=== PATIENT | female | born 1995 | race Hispanic/Latino ===

== ENCOUNTER 2025-02-25 22:29 | Emergency (ER) | payer SELFPAY ==
[~2025-02-25] VITALS: Ht 157.5 cm; Wt 83.5 kg
[2025-02-25 23:04] LABS: IMMATURE GRANULOCYTE ABSOLUTE 0.03 K/uL (0-1); NUCLEATED RED BLOOD CELLS 0.0 % (0.0-0.19); PLATELET COUNT (AUTO) 379 K/uL (130-400); RED BLOOD CELL COUNT(AUTO) 5.11 MIL/uL (4.00-5.50); RED CELL DISTRIBUTION WIDTH 13.5 % (11.0-15.5); WHITE BLOOD COUNT (AUTO) 11.7 K/uL (4.8-10.8)
[2025-02-25 23:14] LABS: CREATININE 0.5 mg/dL (0.5-1.0); GLOMERULAR FILTR. RATE CALC 129.0 mL/min (>90); GLUCOSE,RANDOM 91.0 mg/dL (70-105); SODIUM SERUM 141.0 mmol/L (136-145); UREA NITROGEN, BLOOD 14.0 mg/dL (7-18)
[2025-02-25 23:17] LABS: APPEARANCE,URINE CLEAR (CLEAR); GLUCOSE, URINE (UA) NEGATIVE (NEGATIVE); LEUKOCYTE ESTERASE ,URINE NEGATIVE Leu/uL (NEGATIVE); NITRATE,URINE NEGATIVE (NEGATIVE); OCCULT BLOOD,URINE MODERATE (NEGATIVE)
[2025-02-25 23:19] LABS: CREATINE KINASE, TOTAL 97.0 U/L (21-232)
[2025-02-25 23:25] LABS: ADD UA MICROSCOPIC YES
[2025-02-25 23:26] LABS: SQUAMOUS EPITHELIAL CELL,UR RARE /HPF (0-2)
--- NOTE | 2025-02-25 23:40 | HMCIMG ---
EXAM: CR Chest, 1 view. CLINICAL HISTORY: Chest pain. COMPARISON: None provided. FINDINGS: The lungs show no infiltrate or other acute finding. No pleural effusion or pneumothorax. The cardiomediastinal silhouette is within normal limits. No acute osseous abnormality. IMPRESSION: 1. No acute cardiopulmonary pathology is evident. /[place]
--- NOTE | 2025-02-26 00:05 | ERN ---
ED Note History of Present Illness Stated Complaint: LEFT ARM NUMBNESS, PALPITATIONS, Chief Complaint: Multiple Complaints Time Seen by MD: 22:30 Time Seen by Midlevel: 22:33 Dictation: 29 Year old female with no past medical history coming in with complaints of intermittent chest pain for one month. Patient states pain is worse when she presses on her left side of the chest. Denies having any recent illness like fever, cough, congestion. Denies any hearing a breath, fever, nausea vomiting. Allergies: Coded Allergies: No Known Allergies (Unverified Allergy, Unknown, 02/25/25) Past Medical History Past Medical History: Migraines Surgical History: LMP: Feb 22, 2025 Review of System Dictation Constitutional: Negative for fever,chills, and weight loss Eyes: Negative for injury, pain,redness, and discharge ENT: Negative for injury,pain or swelling Cardiovascular: Positive for chest pain, no palpitations, and no edema Respiratory: Negative for shortness of breath, cough, and wheezing, Abdomen/GI: Negative for abdominal pain, nausea, vomiting, diarrhea, and constipation Back: Negative for injury and pain : Negative for injury, bleeding and discharge MS/Extremity: Negative for injury and deformity Skin: Negative for rash, and discoloration Neuro: Negative for headache, weakness, numbness, tingling, and seizure Psych: Negative for suicide ideation, homicidal ideation, and hallucinations Review of Systems: was completed Initial Vital Sign VS Vital Signs Date Time Temp Pulse Resp B/P (MAP) Pulse Ox O2 Delivery O2 Flow Rate FiO2 02/25/25 22:30 97.2 65 20 132/82 100 Room Air 02/25/25 22:48 0 21 Physical Exam Dictation General: awake, alert, NAD Head/Face: Normocephalic, atraumatic Eyes: PERRL, EOMI, vision at baseline ENT: oral cavity clear, TMs clear, no signs of infection Neck: Trachea midline, supple, no nuchal rigidity Cardiovascular: RRR, normal S1/S2, No MRGs, no JVD, is reproducible upon palpation to the left side of the sternum. Respiratory: CTAB, no respiratory distress, No rales or wheezes Abdomen: Soft, non-tender, non-distended, normal bowel sounds, no guarding or rebound. Skin: Warm, dry, normal turgor, no rash MS/Extremity: Pulses equal, no cyanosis, neurovascular intact, FROM Neuro: COAx4, GCS 15, strength 5/5, CN 2-12 intact, normal cerebellar exam, normal gait, Psych: Normal behavior, mood, and affect normal Results (Laboratory/Radiology) Laboratory/Radiology Laboratory Tests Test 02/25/25 22:42 02/25/25 23:08 White Blood Count 11.7 K/uL (4.8-10.8) H Red Blood Count 5.11 MIL/uL (4.00-5.50) Hemoglobin 12.6 g/dL (12.0-16.0) Hematocrit 39.9 % (36-48) Mean Corpuscular Volume 78.1 fL (79-99) L Mean Corpuscular Hemoglobin 24.7 pg (27.0-33.0) L Mean Corpuscular Hemoglobin Concent 31.6 g/dL (32.0-36.0) L Red Cell Distribution Width 13.5 % (11.0-15.5) Platelet Count 379 K/uL (130-400) Mean Platelet Volume 10.3 fL (7.5-10.5) Immature Granulocyte % (Auto) 0.3 % (0-1) Neutrophils (%) (Auto) 56.3 % (40.0-77.0) Lymphocytes (%) (Auto) 36.0 % (21.0-51.0) Monocytes (%) (Auto) 6.4 % (3.0-13.0) Eosinophils (%) (Auto) 0.7 % (0.0-8.0) Basophils (%) (Auto) 0.3 % (0.0-5.0) Neutrophils # (Auto) 6.6 K/uL (1.8-7.7) Lymphocytes # (Auto) 4.2 K/uL (1.0-4.8) Monocytes # (Auto) 0.8 K/uL (0.1-1.0) Eosinophils # (Auto) 0.08 K/uL (0.00-0.70) Basophils # (Auto) 0.03 K/uL (0.00-0.20) Absolute Immature Granulocyte (auto 0.03 K/uL (0-1) Nucleated Red Blood Cells 0.0 % (0.0-0.19) Sodium Level 141 mmol/L (136-145) Potassium Level 3.6 mmol/L (3.5-5.1) Chloride Level 103 mmol/L (101-111) Carbon Dioxide Level 31 mmol/L (21-32) Blood Urea Nitrogen 14 mg/dL (7-18) Creatinine 0.5 mg/dL (0.5-1.0) Glomerular Filtration Rate Calc 129 mL/min (>90) Random Glucose 91 mg/dL (70-105) Total Calcium 8.6 mg/dL (8.5-10.1) Total Creatine Kinase 97 U/L (21-232) Troponin I High Sensitivity 7 ng/L (4-50) Urine Color LIGHT-YELLOW (YELLOW) Urine Appearance CLEAR (CLEAR) Urine pH 7.0 (5.0-8.0) Urine Specific [place] 1.023 (1.001-1.031) Urine Protein NEGATIVE mg/dL (NEGATIVE) Urine Glucose (UA) NEGATIVE mg/dL (NEGATIVE) Urine Ketones NEGATIVE mg/dL (NEGATIVE) Urine Occult Blood MODERATE (NEGATIVE) H Urine Nitrate NEGATIVE (NEGATIVE) Urine Bilirubin NEGATIVE mg/dL (NEGATIVE) Urine Urobilinogen 0.2 mg/dL (0.2-1.0) Urine Leukocyte Esterase NEGATIVE [place]/uL Urine RBC 2-5 /HPF (0-1) H Urine WBC 2-5 /HPF (0-1) H Urine Squamous Epithelial Cells RARE /HPF (0-2) Urine Bacteria None /HPF (None Seen) Labs Reviewed?: Yes EKG Comment: EKGs done at 10:28 p.m.. Sinus rhythm at a rate of 78. No STEMI interpreted by ER MD ED Course ED Course Orders Procedure Category Date Status Time Vital Signs Per CPOE 02/25/25 Transmitted Routine 22:30 Chest 1vw RAD 02/25/25 Resulted 22:30 12 Lead Ekg Tracing- EKG 02/25/25 Logged Technical 22:30 Oxygen By Nc/Pulse Ox CPOE 02/25/25 Transmitted 22:30 Maintain Iv CPOE 02/25/25 Transmitted 22:30 Iv Insertion CPOE 02/25/25 Transmitted 22:30 Cardiac Monitoring CPOE 02/25/25 Transmitted 22:30 Pulse Oximetry With CPOE 02/25/25 Transmitted Vs And Prn 22:30 Cbc With Differential LAB 02/25/25 In Process 22:30 Activity: Br W/Brp CPOE 02/25/25 Transmitted With Assist 22:30 Creatine Kinase, Total LAB 02/25/25 Complete 22:30 Troponin I High LAB 02/25/25 Complete Sensitivity 22:30 Urinalysis Profile LAB 02/25/25 Complete 22:30 Basic Metabolic Panel LAB 02/25/25 Complete 22:30 Vital Signs Date Time Temp Pulse Resp B/P (MAP) Pulse Ox O2 Delivery O2 Flow Rate FiO2 02/25/25 22:48 98.8 72 18 121/79 98 Room Air* 0 21 02/25/25 22:30 97.2 65 20 132/82 100 Room Air HEART Score Response (Comments) Value History: Low suspicion (0) 0 EKG: Normal 0 Age: < 45yrs (0) 0 Risk Factors: No known risk factors (0) 0 Initial Troponin: Normal limit (0) 0 Total 0 Medical Decision Making MDM MDM: 29 Year old female with no past medical history coming in with complaints of intermittent chest pain for one month. Patient states pain is worse when she presses on her left side of the chest. Denies having any recent illness like fever, cough, congestion. Denies any shortness of breath, fever, nausea vomiting. Cardiac workup is negative. Heart score of year old. Discussed with the patient's findings. Educated she needs to follow up outpatient with her PCP or return to the hospital for any worsening symptoms. Patient verbalized understanding, answered all questions. Differential diagnosis: ACS, costochondritis, pleurisy Rationale: Tests considered and ordered secondary to shared decision making include: Previous outside records reviewed: Old ER visits. Risk of complication and/or morbidity or mortality of patient management: None Medications-Per medication reconciliation Need for hospitalization: Patient does not meet criteria for hospitalization. Need for emergency major/minor surgery: No There are no social concerns with this patient. Prescription drug management Prescriptions will include symptomatic care Patient's prior external medical records from other ER visits were reviewed by me as indicated. Prior testing and results from previous visits were reviewed. Prior tests were taken into account with medical decision making and resource utilization, independent historian/historians were used to obtain complete medical history. I independently interpreted the test that were performed, results were reviewed by me and considered findings on radiology if ordered. Medical management and examination interpretation discussions were had by me with other qualified healthcare professionals as indicated for the patient's care. DX & DISP Disposition: Discharge Departure Impression: Primary Impression: Chest pain, non-cardiac Condition: Stable Additional Instructions: Follow up with your primary care doctor in 1-2 days. Return to the hospital if you have any worsening symptoms. Referrals: MARGARITA BRAY (PCP) Time of Disposition: 00:04 I have reviewed the case, and I agree with, Diagnosis and Plan BREANA ARELLANO CNP Feb 26, 2025 00:05
[2025-02-26 00:09] VITALS: BP 115/80; PULSE 82; RESP 18; TEMP 98.7; O2SAT 98
--- NOTE | 2025-02-26 05:15 | EKG ---
[facility] Test Date: 2025-02-25 Test Time: 22:28:04 Pat Name: EDDY LY Department: ED Room: Gender: F Community Artist: [id number] : 1995 Requested By: KIA LIN Order Number: [id number] Reading MD: Salvador Clemens Measurements Intervals [place] Rate: 74 P: 54 VT: 150 QRS: 42 QRSD: 92 T: 29 QT: 386 QTc: 428 Interpretive Statements Sinus rhythm Low voltage, precordial leads No previous ECG available for comparison Electronically Signed On 02-26-2025 11:14:33 CVT RN by Salvador Clemens Please click the below link to view image of tracing.
== END 2025-02-26 00:20 | disposition home or self-care (01) ==
LOC: EDH 22:29
DX: R07.89 Other chest pain (principal); R20.0 Anesthesia of skin
CPT/HCPCS: 36415; 71045; 80048; 81001; 82550; 84484; 85025; 93005; 99285